=== PATIENT | male | born 1985 | race Caucasian/White ===

== ENCOUNTER 2017-05-25 10:27 | Outpatient (CLI) | payer MEDICAID ==
[2017-05-26 10:18] LABS: HEPATITIS C ANTIBODY NON-REACTIVE (NON-REACTIVE)
[2017-05-26 13:40] LABS: HIV AG/AB 4TH GEN NON-REACTIVE (NON-REACTIVE)
[2017-05-27 12:17] LABS: HSV 1 IGG TYPE SPECIFIC AB <0.90 index; HSV 2 IGG TYPE SPECIFIC AB <0.90 index
== END 2017-05-25 10:28 | disposition home or self-care (01) ==
LOC: LAB.F 10:27
PROVIDERS: ATTEND Nurse Practitioner Family
DX: Z11.3 Encounter for screening for infections with a predominantly sexual mode of transmission (principal)
CPT/HCPCS: 36415; 81599; 86695; 86696; 86803; 87389; 87491; 87591

== ENCOUNTER 2017-05-25 12:08 | Emergency (ER) | payer MEDICAID | END 2017-05-25 12:37 | disposition left against medical advice (07) | LOC: ED 12:08 | DX: Z53.21 Procedure and treatment not carried out due to patient leaving prior to being seen by health care provider (principal); M25.561 Pain in right knee; M25.562 Pain in left knee; R22.43 Localized swelling, mass and lump, lower limb, bilateral; M25.571 Pain in right ankle and joints of right foot; M25.572 Pain in left ankle and joints of left foot; Z11.3 Encounter for screening for infections with a predominantly sexual mode of transmission | CPT/HCPCS: 36415; 81599; 86695; 86696; 86803; 87389; 87491; 87591 ==

== ENCOUNTER 2017-05-25 12:37 | Outpatient (CLI) | payer MEDICAID ==
--- NOTE | 2017-05-25 17:42 | XRAY Report ---
DATE OF SERVICE: 05/25/2017 THREE VIEW BILATERAL ANKLES: 05/25/2017 CLINICAL INDICATION: Bilateral ankle pain. FINDINGS: AP, lateral, oblique views of the bilateral ankles demonstrate no evidence of fracture or dislocation. The joint spaces are preserved. No radiopaque foreign body is seen in the soft tissues. IMPRESSION: NORMAL BILATERAL ANKLES TD: 05/25/2017 18:38 MTDD
--- NOTE | 2017-05-25 17:42 | XRAY Report ---
DATE OF SERVICE: 05/25/2017 FOUR VIEW BILATERAL KNEES: 05/25/2017 CLINICAL INDICATION: Chronic bilateral pain. FINDINGS: AP, lateral, bilateral oblique views of the bilateral knees demonstrate no evidence of acute fracture or dislocation. The joint spaces are preserved. There is a proximal tibial screw present on the right. Anterior soft tissue swelling is seen bilaterally. IMPRESSION: ANTERIOR SOFT TISSUE SWELLING BILATERALLY, BUT NO EVIDENCE OF ACUTE FRACTURE OR DISLOCATION. TD: 05/25/2017 18:40
== END 2017-05-25 12:38 | disposition home or self-care (01) ==
LOC: DI 12:37
PROVIDERS: ATTEND Nurse Practitioner Family
DX: M25.561 Pain in right knee (principal); M25.562 Pain in left knee; R22.43 Localized swelling, mass and lump, lower limb, bilateral; M25.571 Pain in right ankle and joints of right foot; M25.572 Pain in left ankle and joints of left foot

== ENCOUNTER 2017-07-07 15:16 | Outpatient (CLI) | payer MEDICAID ==
[2017-07-07 17:35] LABS: EOSINOPHILS # (AUTO) 0.1 10^3/uL (0.0-0.7); EOSINOPHILS % (AUTO) 1.9 %; HGB - HEMOGLOBIN 15.1 g/dL (14.0-18.0); LYMPHOCYTES # (AUTO) 1.1 10^3/uL (1.5-3.5); LYMPHOCYTES % (AUTO) 26.6 %; MEAN CORPUSCULAR HEMOGLOBIN 29.7 pg (27.0-31.0); MEAN CORPUSCULAR HGB CONC 34.9 g/dL (32.0-36.0); MEAN CORPUSCULAR VOLUME 85.2 fL (80.0-94.0); MEAN PLATELET VOLUME 7.5 fL (7.4-11.4); MONOCYTES # (AUTO) 0.4 10^3/uL (0.0-1.0); NEUTROPHILS # (AUTO) 2.5 10^3/uL (1.5-6.6); NEUTROPHILS % (AUTO) 61.5 %; PLT - PLATELET COUNT 138 10^3/uL (130-450); RED BLOOD COUNT 5.07 10^6/uL (4.70-6.10); RED CELL DISTRIBUTION WIDTH 14.1 % (12.0-15.0)
[2017-07-07 17:54] LABS: % IRON SATURATION 17 % (20-50); ALBUMIN 4.5 g/dL (3.2-5.5); ALBUMIN/GLOBULIN RATIO 1.6 (1.0-2.2); ALKALINE PHOSPHATASE 49 IU/L (42-121); ALT ALANINE AMINOTRANSFERASE 17 IU/L (10-60); AST ASPARTATE AMINOTRANSFERASE 18 IU/L (10-42); BILIRUBIN,TOTAL 0.5 mg/dL (0.2-1.0); BUN - BLOOD UREA NITROGEN 14 mg/dL (6-20); CALCIUM 9.1 mg/dL (8.5-10.3); CARBON DIOXIDE - CO2 26 mmol/L (21-32); CHLORIDE 102 mmol/L (101-111); CREATININE 0.9 mg/dL (0.6-1.2); GFR - MDRD 100 (>89); GLUCOSE 101 mg/dL (70-100); IRON 67 ug/dL (45-182); SODIUM 138 mmol/L (135-145); TOTAL IRON BINDING CAPACITY 389 ug/dL (250-450); TOTAL PROTEIN 7.3 g/dL (6.7-8.2); TRANSFERRIN 278 mg/dL (180-329)
[2017-07-07 18:19] LABS: CRP - C-REACTIVE PROTEIN < 1.0 mg/dL (0-1.0)
[2017-07-07 19:07] LABS: RHEUMATOID FACTOR NEGATIVE (Negative)
== END 2017-07-07 15:17 | disposition home or self-care (01) ==
LOC: LAB.F 15:16
PROVIDERS: ATTEND Nurse Practitioner Family
DX: M25.50 Pain in unspecified joint (principal)
CPT/HCPCS: 36415; 80053; 83540; 84466; 85025; 85651; 86038; 86140; 86430

== ENCOUNTER 2017-10-13 11:33 | Emergency (ER) | payer SELFPAY ==
[2017-10-13 11:44] VITALS: BP 134/89
[2017-10-13] MEDS ORDERED: DEXAMETHASONE 10 MG/ML VIAL PO STA (12:08)
--- NOTE | 2017-10-13 12:11 | ED Physician Documentation ---
PD HPI HEENT - Stated complaint Stated Complaint: RELL/COUGH/HD PX/FACE PX - Chief complaint Chief Complaint: Heent - History obtained from History obtained from: Patient - History of Present Illness Timing - onset: How many days ago (6) Timing - duration: Days (6) Timing - details: Gradual onset, Still present Location: Sinuses Improves: Medication Associated symptoms: Congestion, Rhinorrhea, Facial swelling, Headache, Cough Similar symptoms before: Diagnosis (sinusitis) Recently seen: Not recently seen - Additional information Additional information: 32-year-old male with a history of allergic rhinitis uses Nasacort and Sudafed for treatment and about 1 week ago he began to get symptoms of sinusitis. He is developed facial swelling increased nasal congestion sinus pressure and yellow and green phlegm. He denies any shortness of breath he does have a bit of a cough and the sore throat that he had last week seems better today. Review of Systems Constitutional: denies: Fever Eyes: denies: Decreased vision Ears: denies: Ear pain Nose: reports: Rhinorrhea / runny nose, Congestion, Sinus pressure / pain Throat: reports: Sore throat Cardiac: denies: Chest pain / pressure, Palpitations Respiratory: reports: Cough. denies: Dyspnea GI: denies: Nausea, Vomiting PD PAST MEDICAL HISTORY - Past Medical History Past Medical History: No - Past Surgical History Past Surgical History: No - Present Medications Home Medications: Ambulatory Orders Medication Instructions Recorded Confirmed Amox/Clav 875/125 [Augmentin] 1 each PO Q12H #20 tablet 10/13/17 Doxepin HCl [Silenor] 6 mg PO QPM 10/13/17 10/13/17 - Allergies Allergies/Adverse Reactions: Allergies Allergy/AdvReac Type Severity Reaction Status Date / Time Sulfa (Sulfonamide Allergy Nausea Verified 10/13/17 11:44 Antibiotics) - Social History Does the pt smoke?: No Smoking Status: Never smoker Does the pt drink ETOH?: No Does the pt have substance abuse?: No - Immunizations Immunizations are current?: Yes - POLST Patient has POLST: No PD ED PE NORMAL - Vitals Vital signs reviewed: Yes (hypertensive ) - General General: Alert and oriented X 3, No acute distress, Well developed/nourished - HEENT HEENT: Atraumatic, PERRL, EOMI, Ears normal, Other (There is mid facial swelling and left maxillary sinus tenderness ) - Neck Neck: Supple, no meningeal sign, No bony TTP - Cardiac Cardiac: RRR, No murmur - Respiratory Respiratory: No respiratory distress, Clear bilaterally - Abdomen Abdomen: Soft, Non tender - Back Back: No CVA TTP, No spinal TTP - Derm Derm: Normal color, Warm and dry, No rash - Extremities Extremities: No deformity, No edema - Neuro Neuro: Alert and oriented X 3, No motor deficit, No sensory deficit, Normal speech Eye Opening: Spontaneous Motor: Obeys Commands Verbal: Oriented GCS Score: 15 - Psych Psych: Normal mood, Normal affect Results - Vitals Vitals: Vital Signs - 24 hr 10/13/17 11:42 Temperature 36.7 C Heart Rate 70 Respiratory 18 Rate Blood Pressure 134/89 H O2 Saturation 98 Oxygen O2 Source Room air PD MEDICAL DECISION MAKING - ED course Complexity details: reviewed results, re-evaluated patient, considered differential, d/w patient ED course: 32-year-old male with a history of allergic rhinitis has now sinus infection as a complication. I discussed with him combining the use of the Carina with the nasal cord in the future and today here in the emergency department is treated for acute bacterial sinusitis with 10 mg of dexamethasone and we will place him on a course of Augmentin. - Sepsis Event Vital Signs: Vital Signs - 24 hr 10/13/17 11:42 Temperature 36.7 C Heart Rate 70 Respiratory 18 Rate Blood Pressure 134/89 H O2 Saturation 98 Oxygen O2 Source Room air Departure - Departure Disposition: 01 Home, Self Care Clinical Impression: Sinusitis Qualifiers: Sinusitis location: maxillary Chronicity: acute Recurrence: not specified as recurrent Qualified Code(s): J01.00 - Acute maxillary sinusitis, unspecified Condition: Stable Instructions: ED Sinusitis Abx Tx Follow-Up: Zehra Hawthorne ARNP [Primary Care Provider] - Prescriptions: Amox/Clav 875/125 [Augmentin] 1 each PO Q12H #20 tablet Forms: Activity restrictions
[2017-10-13] MEDS ORDERED: CHERRY SYRUP 10 ML UDC PO ONE (12:26)
== END 2017-10-13 12:36 | disposition home or self-care (01) ==
LOC: ED 11:33
DX: J01.00 Acute maxillary sinusitis, unspecified (principal)
CPT/HCPCS: 99283; A9270

== ENCOUNTER 2018-10-23 07:34 | Emergency (ER) | payer SELFPAY ==
[2018-10-23 07:57] VITALS: BP 147/96
[2018-10-23] MEDS ORDERED: CHERRY SYRUP 10 ML UDC PO ONE (09:04)
[2018-10-23] MEDS ORDERED: DEXAMETHASONE 10 MG/ML VIAL PO STA (09:04)
--- NOTE | 2018-10-23 09:07 | ED Physician Documentation ---
PD HPI URI - Stated complaint Stated Complaint: COUGH/VOMITING - Chief complaint Chief Complaint: Heent - History obtained from History obtained from: Patient - History of Present Illness Timing - onset: How many weeks ago (1) Timing duration: Weeks (1) Timing details: Gradual onset, Still present Associated symptoms: Nasal congestion, Rhinorrhea, Sinus pain, Productive cough, Other (post tussive emesis) Contributing factors: Other (seasonal allergic rhinitis) Improves by: Medication Worsened by: Activity Similar symptoms before: Diagnosis (sinusitis with allergic rhinitis.) Recently seen: Not recently seen - Additional information Additional information: 33-year-old male with a history of seasonal allergic rhinitis has typical seasonal allergic rhinitis symptoms and he has been using Zyrtec and Nasacort for that. The Nasacort was keeping him awake at night and he discontinued the use of that. He is now developed yellow and green phlegm from cough and the cough is become hard enough that he is vomiting he has had some sinus pressure. He said all the symptoms previously about 1 year ago at which time he had sinusitis and was treated with Augmentin successfully. Review of Systems Constitutional: denies: Fever Eyes: denies: Decreased vision Ears: denies: Ear pain Nose: reports: Rhinorrhea / runny nose, Congestion, Sinus pressure / pain Throat: denies: Sore throat Cardiac: denies: Chest pain / pressure, Palpitations Respiratory: reports: Cough. denies: Dyspnea GI: reports: Vomiting. denies: Nausea : denies: Dysuria, Frequency PD PAST MEDICAL HISTORY - Past Surgical History Past Surgical History: No - Present Medications Home Medications: Ambulatory Orders Medication Instructions Recorded Confirmed Amox/Clav 875/125 [Augmentin] 1 each PO Q12H #20 tablet 10/23/18 Cetirizine [ZyrTEC] 10 mg PO ONCE 10/23/18 10/23/18 - Allergies Allergies/Adverse Reactions: Allergies Allergy/AdvReac Type Severity Reaction Status Date / Time Sulfa (Sulfonamide Allergy Nausea Verified 10/23/18 07:57 Antibiotics) - Social History Does the pt smoke?: No Smoking Status: Never smoker Does the pt drink ETOH?: No Does the pt have substance abuse?: No - Immunizations Immunizations are current?: Yes - POLST Patient has POLST: No PD ED PE NORMAL - Vitals Vital signs reviewed: Yes (hypertensive ) - General General: Alert and oriented X 3, No acute distress, Well developed/nourished - HEENT HEENT: Atraumatic, PERRL, EOMI, Ears normal, Other (The allergic salute sign is positive under the nose with erythema and drainage both clear and yellow. 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, No motor deficit, No sensory deficit, Normal speech Eye Opening: Spontaneous Motor: Obeys Commands Verbal: Oriented GCS Score: 15 - Psych Psych: Normal mood, Normal affect Results - Vitals Vitals: Vital Signs - 24 hr 10/23/18 07:55 Temperature 37.3 C Heart Rate 76 Respiratory 18 Rate Blood Pressure 147/96 H O2 Saturation 99 Oxygen O2 Source Room air PD MEDICAL DECISION MAKING - ED course Complexity details: reviewed old records, considered differential, d/w patient ED course: 33-year-old male with a history of allergic rhinosinusitis has developed acute symptoms again and he has previously had success with use of the dexamethasone and Augmentin will place him back on a course of that. I have encouraged the patient to use some Benadryl to override the sleep inhibition of the Nasacort and I have referred him to [facility] for continued treatment as you may need to try other agents. Departure - Departure Disposition: 01 Home, Self Care Clinical Impression: Allergic rhinosinusitis Qualifiers: Allergic rhinitis trigger: unspecified Allergic rhinitis seasonality: seasonal Qualified Code(s): J30.2 - Other seasonal allergic rhinitis Condition: Stable Health Concerns: cough and vomit Plan of Treatment: get rid of cough Care Goals: improve symptoms Assessment: allergic rhinosinusitis Instructions: ED Sinusitis Abx Tx, ED Allergy Seasonal Follow-Up: [facility] [Provider Group] Prescriptions: Amox/Clav 875/125 [Augmentin] 1 each PO Q12H #20 tablet
== END 2018-10-23 09:33 | disposition home or self-care (01) ==
LOC: ED 07:34
DX: J30.2 Other seasonal allergic rhinitis (principal)
CPT/HCPCS: 99283; A9270